=== PATIENT | female | born 1975 | race Caucasian/White ===

== ENCOUNTER 2021-12-02 03:21 | Emergency (ER) | payer BC, SELFPAY ==
[2021-12-02] VITALS (21 sets, daily range): BP systolic 113–129; BP diastolic 49–68; PULSE 72; RESP 16; TEMP 36.8; O2SAT 93–100
--- NOTE | ~2021-12-02 | CT_ITS ---
EXAMINATION: CT abdomen pelvis w con DATE: 12/02/2021 04:34 INDICATION: Upper abdominal pain. Nausea. TECHNIQUE: Computed tomography (CT) of the abdomen and pelvis was performed with 100 mL Omnipaque 350 intravenous contrast. Automated exposure control and iterative reconstruction technique were employe d. The dose-length product was 440.38 mGy-cm. COMPARISON: CT abdomen and pelvis 05/01/2019 FINDINGS: The visualized portions of the lung bases are clear without pneumonia or pleural effusion. The heart size is normal. No pericardial effusion. There is a 6 mm cyst in the liver. The gallbladder , spleen, pancreas, adrenal glands, and kidneys are normal. There are appendicoliths in the appendix, which is dilated to 13 mm, increased from 5 mm on 05/01/2019. There is gas in the lumen of the append ix. There is a small sliding hiatal hernia. There are no pathologically enlarged lymph nodes. There i s physiologic fluid in the pelvis. The bones are unremarkable. IMPRESSION: 1. Acute appendicitis. Reviewed, dictated and finalized at location A. IMPRESSION: 1. Acute appendicitis.
--- NOTE | 2021-12-02 03:39 | ED.ABDPAIN ---
HPI - Abdominal Pain General Chief Complaint: Abdominal Pain Stated Complaint: Abdominal pain, nausea Time Seen by Provider: 12/02/21 03:24 Source: patient Mode of arrival: EMS Limitations: no limitations History of Present Illness HPI narrative: 46-year-old female presents emergency room by prashanto secondary to abdominal pain. She went to bed in her normal state of health and woke up a few hours later with some burning in the epigastric region. She states she has a history of some reflux and so she propped herself up in bed did not get significant relief then went and ate some peanut butter and crackers. She had been fasting for about 26 hours prior to this. However the pain did not actually improved and continued to have some increasing pain all across the epigastric region subsequently got concerned and came to emergency room for evaluation. Denies any chills or fevers. No nausea vomiting. No known history of any gallbladder issues. Related Data Allergies Allergy/AdvReac Type Severity Reaction Status Date / Time egg Allergy Severe CAN'T Verified 05/01/19 19:32 BREATHE Sulfa (Sulfonamide Allergy Severe Anaphylactic Verified 05/01/19 19:32 Antibiotics) Shock FLU VACCINE Allergy Severe Uncoded 10/08/07 07:53 Review of Systems Review of Systems: CONSTITUTIONAL: Denies fever, chills, or sweats. EYES: Denies visual changes, redness, or discharge. ENT: Denies rhinorrhea, congestion, sore throat, or otalgia. CARDIOVASCULAR: Denies chest pain, palpitations, or edema. RESPIRATORY: Denies cough or dyspnea. GASTROINTESTINAL: Epigastric abdominal pain with no associated vomiting or diarrhea GENITOURINARY: Denies dysuria or hematuria. SKIN: Denies rash or itching. MUSCULOSKELETAL: Denies back pain, joint pain, or myalgia. NEUROLOGIC: Denies headache, numbness, or weakness. PSYCHIATRIC: Denies anxiety or depression. Exam Narrative: APPEARANCE: Well appearing, no pain or distress, well-nourished. Head normocephalic and atraumatic. EYES: PERRLA/EOMI, conjunctivae very clear. NOSE: Normal with no drainage EARS:TMS clear Manoj Wade, with good light reflex. THROAT: Pharynx clear, no exudate. NECK: Supple. No adenopathy, no masses. RESPIRATORY: Airway patent, respirations nonlabored. Clear to auscultation bilaterally, no rales, rhonchi, wheezing. CARDIOVASCULAR: Regular rate and rhythm without murmurs, rubs, or gallops. ABDOMINAL: Soft with tenderness to palpation epigastric, right upper quadrant region and mild pain to the right mid abdominal region. No rebound rigidity guarding. Normal bowel sounds. Musculoskeletal: Moves all extremities. Strength/ROM intact, No edema, No calf tenderness. NEURO: Alert. Cranial nerves II through XII intact. Normal gait. Good coordination. Nonfocal examination. SKIN:: Warm, dry. Normal Color PSYCHIATRIC: Normal affect/mood, normal interaction Course Vital Signs Vital signs: Vital Signs Temperature 98.3 F 12/02/21 03:22 Pulse Rate 72 12/02/21 03:22 Respiratory Rate 16 12/02/21 03:22 Blood Pressure 129/68 12/02/21 03:22 Pulse Oximetry 100 12/02/21 03:22 Temperature 98.3 F 12/02/21 03:22 Pulse Rate 72 12/02/21 03:22 Respiratory Rate 16 12/02/21 03:22 Blood Pressure 123/66 12/02/21 03:31 Pulse Oximetry 100 12/02/21 04:00 MDM - Abdominal Pain MDM Narrative Medical decision making narrative: Laboratory work-up was performed showing the patient has a white count of 11.0 with 85.4% neutrophils. Chemistry panel shows a slight decrease in potassium at 3.3 urinalysis shows 2+ ketones with the patient's been fasting no signs of an infection. CT scan comes back with findings consistent with acute appendicitis. This was reviewed with the patient. Patient preferred to go to [facility]. I called [facility] and spoke to Dr. Noman Juarez who accepted the patient in transfer. Patient was given Zosyn 3.375 IV here in the emergency room. She will be kept NPO. IV was establish
[2021-12-02] MEDS: BELLADONNA ALK/PHENOB ELIX 10 ML, MAG HYDROX/ALUMINUM HYD/SIMETH 30 ML, LIDOCAINE HCL 2... PO (03:47)
[2021-12-02] MEDS: FAMOTIDINE 20 MG/2 ML VIAL 40 MG IV PUSH (03:47)
[2021-12-02 03:56] LABS: Basophils Percent Auto 0.2 % (0.2-1.2); Eosinophils Absolute Auto 0.1 K/mm3 (0-0.3); Eosinophils Percent Auto 0.7 % (0-4.4); Hematocrit 41.5 % (37.0-47.0); Hemoglobin 14.3 g/dL (12.0-15.0); Immature Granulocyte Absolute 0.03 K/mm3 (0.00-0.031); Immature Granulocyte Percent A 0.3 % (0-0.5); Lymphocytes Absolute Auto 1.07 K/mm3 (0.9-3.2); Lymphocytes Percent Auto 9.7 % (18.3-44.2); Mean Corpuscular HGB Conc 34.5 g/dl (32-36); Mean Corpuscular Hemoglobin 31.4 pg (26-34); Mean Corpuscular Volume 91.2 fl (80-100); Mean Platelet Volume 10.4 fl (7.4-10.4); Monocytes Absolute Auto 0.4 K/mm3 (0.1-0.6); Monocytes Percent Auto 3.7 % (2.6-8.5); Neutrophils Absolute Auto 9.4 K/mm3 (1.3-6.7); Neutrophils Percent Auto 85.4 % (45.5-73.1); Platelet Count Result 234 k/mm3 (150-375); Red Blood Count 4.55 M/mm3 (4.2-5.4)
[2021-12-02 03:58] LABS: Appearance Urine Clear (Clear); Bilirubin Urine Negative (Negative); Color Urine Yellow (Yellow); Glucose Urine UA Negative (Negative); Ketones Urine 2+ mg/dL (Negative); Leukocyte Esterase Ur Negative LEU/UL (Negative); Nitrate Urine Negative (Negative); Protein Urine Negative (Negative); Specific Grav Ur 1.025 (1.001-1.035); Urobilinogen Urine 0.2 mg/dL (<2.0); pH Urine 8.5 (5.0-9.0)
[2021-12-02 04:02] LABS: Add Urine Microscopic? YES; Blood Urine Trace-Intact (Negative)
[2021-12-02 04:06] LABS: Amorphous Sediment Urine Few; Bacteria Urine Trace /hpf; Mucus Urine Rare /lpf; RBC Urine 0-2 /hpf (0-2); Squamous Epithelial Cell Urine Few /hpf (Few); WBC Urine 0-3 /hpf
[2021-12-02 04:07] LABS: Alanine Aminotransferase 25 U/L (4-35); Albumin Level 3.9 g/dL (3.5-5.1); Alkaline Phosphatase 68 U/L (38-126); Anion Gap 6 mmol/L (8-16); Aspartate Amino Transferase 30 U/L (14-36); Bilirubin,Total 0.3 mg/dL (0.2-1.3); Blood Urea Nitrogen 12 mg/dL (7-17); Calcium 8.9 mg/dL (8.4-10.2); Carbon Dioxide 23 mmol/L (22-30); Chloride 107 mmol/L (98-107); Estimated Glomerular Filt Rate > 60; Glucose 116 mg/dL (65-110); Lipase 67 U/L (23-300); Potassium 3.3 mmol/L (3.4-5.0); Sodium 136 mmol/L (137-145)
[2021-12-02] MEDS: SODIUM CHLORIDE 0.9% IV 1,000 ML 150 ML IV CONT (05:10)
[2021-12-02] MEDS: MORPHINE SULFATE (*CRX) 2 MG/ML INJ IV PUSH (05:57)
[2021-12-02 06:03] LABS: SARS-CoV-2 RNA PCR Negative
--- NOTE | 2021-12-02 06:22 | PC.NURSE ---
0614: Jesse from [facility] called with bed assignment for patient ([id number]). Informed RN.
--- NOTE | 2021-12-02 07:41 | PC.NURSE ---
ems updated eta. new eta of 0826
[2021-12-02] MEDS: MORPHINE SULFATE (*CRX) 4 MG/ML INJ (08:59)
[2021-12-02] MEDS: ONDANSETRON INJ 4 MG/2 ML VIAL (09:00)
== END 2021-12-02 09:11 | disposition short-term general hospital (02) ==
PROVIDERS: Emergency Medicine; Emergency Provider Emergency Medicine
DX: K35.80 Unspecified acute appendicitis (principal); Z20.822 Contact with and (suspected) exposure to COVID-19
CPT/HCPCS: 36415; 74177; 80053; 81001; 81025; 83690; 85025; 96361; 96365; 96375; 96376; 99285; A9270; C9803; J2270; J2405; J2543; J7030; Q9967; U0003; U0005

== ENCOUNTER 2025-07-01 08:25 | Emergency (ER) | payer OTHER, SELFPAY ==
[2025-07-01 08:31] VITALS: BP 117/62; PULSE 81; RESP 16; TEMP 36.8; O2SAT 99
--- NOTE | 2025-07-01 09:47 | ED_ITS ---
HPI - Fall General Chief Complaint: Fall Stated Complaint: laceration Time Seen by Provider: 07/01/25 08:50 History of Present Illness HPI Narrative: Patient is a 49-year-old female who presents ER with laceration to the left knee. Trip and fall while walking her dog. No tear in her pants but she does have a 6 cm v-shaped laceration that is a flap. Tetanus up-to-date in the last 2 years. No numbness or tingling. Related Data Allergies Allergy/AdvReac Type Severity Reaction Status Date / Time egg Allergy Severe CAN'T Verified 07/01/25 08:34 BREATHE Sulfa (Sulfonamide Allergy Severe Anaphylactic Verified 07/01/25 08:34 Antibiotics) Shock FLU VACCINE Allergy Severe Anaphylaxis Uncoded 07/01/25 08:34 Review of Systems Constitutional: Constitutional: Reports no additional constitutional complaints Integumentary/Breasts: Skin/Breast: Reports system reviewed and no additional complaints, except as docu Exam Narrative: GENERAL: Well-appearing, well-nourished, and in no acute distress. HEAD: Normocephalic, atraumatic. EXTREMITIES: Normal range of motion. No edema. Left patellar tendon intact. SKIN: Warm, dry . 6 cm v-shaped laceration inferior to left knee. No foreign body in a bloodless field. NEURO: Alert and oriented x3. PSYCH: Normal mood and affect. Course Vital Signs Vital signs: Vital Signs Temperature 98.2 F 07/01/25 08:31 Pulse Rate 81 07/01/25 08:31 Respiratory Rate 16 07/01/25 08:31 Blood Pressure 117/62 07/01/25 08:31 Pulse Oximetry 99 07/01/25 08:31 Temperature 98.2 F 07/01/25 08:31 Pulse Rate 81 07/01/25 08:31 Respiratory Rate 16 07/01/25 08:31 Blood Pressure 117/62 07/01/25 08:31 Pulse Oximetry 99 07/01/25 08:31 Procedures Laceration Laceration 1: Date: 07/01/25 Time: 09:50 Site: other ( Left knee) Size (cm): 6 Description: flap Depth: simple, single layer Local Anesthetic: lidocaine 1% and with epi Amount of anesthesia used (mL): 5 Pre-repair: wound explored and irrigated ====== Skin Level ====== Skin layer closed with: nylon Size (cm): 3-0 Number of sutures: 5 Technique: simple, interrupted (3) and horizontal mattress (2) ====== Subcutaneous Layer ====== ====== Muscle Layer ====== ====== Tendon Layer ====== MDM - Fall Differential Diagnosis Differential diagnosis: Likely other ( laceration, skin tear, foreign body fracture of lower extremity) Discharge Plan Discharge Clinical Impression: Laceration Patient Disposition: Home Condition: Stable Instructions: Laceration (ED) Additional Instructions: you will need your sutures removed in 14 days. You may remove them yourself or return to the ER. You may also go to your primary care doctor. Return the ER earlier if your skin wound is red and hot, it is draining pus, or you have additional concerns. Patient Language: Uzbek Follow-up/Referrals: PHYSICIAN NOT ON STAFF,NONSTAFF [Primary Care Provider] - 2 Weeks
--- OUTSIDE RECORDS SUMMARY | 2025-07-01 10:49 | XMS_ITS ---
Author Organization [facility] Address [address] [place] [address] Care Team Providers Care Auxiliary Equipment Tender Name Role Phone Miscellaneous, Not In File Unavailable Unava ilable Alcira Canas MD Primary Care Provider Transplant Episode Kidney Potential Donor [facility] ([place], [place]) - [facility] Referred on 04/02/2024 Marked as Deferred on 04/02/2024 Reason: Pending Return of Packet Kidney CoordinatorAco Anant Rivera MD Fax: N/A Email: N/A Care Team Name Role Phone Fax Email Aco Anant Rivera MD Kidney Coordinator [phone] N/A N/A Events Pre-Donation Referred: 04/02/2024
--- OUTSIDE RECORDS SUMMARY | 2025-07-01 10:49 | XMS_ITS | Encounter Summary ---
Author Organization [facility] Address 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
--- OUTSIDE RECORDS SUMMARY | 2025-07-01 10:49 | XMS_ITS | Encounter Summary ---
Author Organization [facility] Address [address] [place] [address] Care Team Providers Care Post Doctoral Researcher Name Role Phone Kesha Oswald MD Primary Care Provider [phone] Encounter Details Date Type Department Care Team (Late st Contact Info) Description 02/18/2006 Outpatient Historical [facility] Internal Medicine Medical [place] [facility] [address] [address] Barby Cordon MD [facility] [address] [place] [address] Social History Tobacco Use Types Packs/Day Years Used Date Smoking Tobacco: Never Assessed Comments Unknown Sex and Gender Information Value Date Recorded Sex Assigned at Not on file Legal Sex Female 5:38 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 COORDINATOR Gender Identity Not on file Sexual Orientation Not on file documented as of this encounter Last Filed Vital Signs Vital Sign Reading Time Taken Comments Blood Pressure 100/70 02/18/2006 11:00 AM CDT Pulse 64 02/18/2006 11:00 AM CDT Temperature - - Respiratory Rate 18 02/18/2006 11:00 AM CDT Oxygen Saturation - - Inhaled Oxygen Concentration - - Weight 57.2 kg (126 lb) 02/18/2006 11:00 AM CDT Height 152.4 cm (5') 02/18/2006 11:00 AM CDT Body Mass Index 24.61 02/18/2006 11:00 AM CDT documented in this encounter Plan of Treatment Not on file documented as of this encounter Visit Diagnoses Not on filedocumented in this encounter Care Teams Post Doctoral Researcher Relationship Specialty Start Date End Date Kesha Oswald MD PCP - General 10/18/09 documented as of this encounter
--- OUTSIDE RECORDS SUMMARY | 2025-07-01 10:49 | XMS_ITS | Clinical Summary ---
Author Organization [facility] Address [address] [place] [address] Phone Care Team Providers Care Hair Mixer Name Role Phone Kesha Oswald MD Primary Care Provider [phone] Allergies Active Allergy Reactions Criticality Noted Date Comments Egg 05/01/2005 Egg Derived Anaphylaxis High 06/14/2011 Sulfa (Sulfonamide Antibiotics) Anaphylaxis High Sulfites Hives High 05/01/2005 Medications LACTOBACILLUS/F OS/PECTIN (PROBIOTIC COMPLEX PO) Take by mouth. Act clemente Calcium-Choleca lciferol, D3, (CALCIUM 600 + D) 600-125 mg-unit Oral Tab Take by mouth. Activ e BRAN/LECITHIN/O DELIA-3/MULTIVIT (MULTIVIT-OMEGA [id number] ) Oral Tab Take by mouth. Acti ve pyridoxine (VITAMIN B-6) 100 mg Oral Tab Take 50 mg by mouth daily. Active folic acid (FOLVITE) 1 mg Oral tablet Take 1 mg by mouth daily. Active Cholecalciferol , Vitamin D3, (VITAMIN D) 5,000 unit Oral Tab Take 5,000 Int'l Units by mouth. Active fluticasone (FLONASE) 50 mcg/spray [place], Suspension 04/24/20 15 Active aspirin-caffein e-butalbital (FIORINAL) 325-40-50 mg capsuleIndicati ons:Migraine with aura and without status migrainosus, not intractable Take 1 Capsule by mouth every 4 hours as needed for Migraine. 40 Capsule 1 04/20/20 20 Active albuterol HFA 90 mcg inhaler Take 2 Puffs by inhalation every 6 hours as needed for Shortness of Breath. 8.5 Gram 1 04/20/20 20 Active liothyronine (CYTOMEL) 25 mcg Tablet Take 1 Tablet (25 mcg) by mouth daily. 30 Tablet 5 07/27/2023 5:07 PM TEST BORING CREW CHIEF 04/11/20 23 Active acetaminophen-c affeine-butalbi angela (FIORICET) 300-40-50 mg capsule Take 1-2 Capsules by mouth every 4 hours as needed for migraine. 45 Capsule 1 06/11/2023 11:24 AM CDT 05/28/20 23 Active liothyronine (CYTOMEL) 25 mcg Tablet Take 1 Tablet (25 mcg) by mouth daily. 30 Tablet 5 07/22/2024 3:16 PM TEST BORING CREW CHIEF 10/16/19 24 Active tirzepatide, weight loss, (Zepbound) 2.5 mg/0.5 mL Pen Injector INJECT 2.5 MG SUBCUTANEOUSLY ONCE WEEKLY X 4 WEEKS; 2 mL 10/16/19 24 Active semaglutide, weight loss, (Wegovy) 0.25 mg/0.5 mL Pen Injector INJECT 0.25 MG UNDER THE SKIN ONCE WEEKLY 2 mL 1 10/18/19 24 Active Blood-Glucose Sensor (Dexcom G7 Sensor) Device Use for continous blood glucose monitoring, replace every 10 days. 3 Each 10/22/19 24 Active Blood-Glucose Sensor (Dexcom G7 Sensor) Device USE DIRECTED 1 Each 11/12/19 24 Active azithromycin (Zithromax Z-Andrea) 250 mg tablet Take 2 tablets by mouth on day 1, then take 1 tablet by mouth daily for 4 days 6 Tablet 02/25/2024 4:51 PM CDT 02/25/20 24 Active liothyronine (CYTOMEL) 25 mcg Tablet Take 1 Tablet (25 mcg) by mouth daily. 30 Tablet 5 03/09/2025 4:13 PM CDT 07/22/20 24 Active nystatin (MYCOSTATIN) 500,000 unit Tablet Take 1 Tablet by mouth 2 times daily. 60 Tablet 07/22/2024 3:16 PM TEST BORING CREW CHIEF 07/22/20 24 Active liothyronine (CYTOMEL) 25 mcg Tablet Take 1 Tablet (25 mcg) by mouth daily. 30 Tablet 2 11/24/19 25 Active triamcinolone acetonide (NASACORT AQ) 55 mcg nasal spray Administer 2 sprays into each nostril daily 16.9 mL 3 02/05/2025 5:29 PM CDT 02/05/20 25 Active hydrocortisone (HYTONE) 2.5 % Cream Apply topically 2 (two) times a day on the upper lip rash for 1-2 weeks until improved. 30 Gram 04/14/2025 5:53 PM CDT 04/14/20 25 Active Active Problems Problem Noted Date Diagnosed Date Hx of anorexia nervosa 06/23/2021 Cholecystitis 05/07/2019 Elevated cortisol level 02/11/2018 Osteopenia of thigh 01/27/2018 Family history of diabetes mellitus 08/23/2017 Tonsil stone 03/25/2015 Egg allergy 01/11/2012 Supervision of other normal 06/14/2011 Personal history of tobacco use 12/25/2010 corpuse luteum cyst, pain control 12/12/2010 History of tobacco use 10/18/2009 Migraine with aura 12/30/2006 Palpitations 04/15/2006 Other convulsions 02/18/2006 Assessment & Plan (01/30/2021 4:18 PM CDT): Antiepileptic on medication list. Asymptomatic. Contact dermatitis and other eczema, due to unspecified cause 10/17/2005 Anxiety state, unspecified 05/01/2005 Resolved Problems Problem Noted Date Diagnosed Date Resolved Date Routine general medical exam ination at a health care facility 03/28/2007 12/25/2010 Need for prophylactic vaccin ation with combined psbfyvzbne-zwlrgrb-qdvfkibpn (DTP) vaccine 01/06/2007 12/25/2010 Abdominal pain, right upper quadrant 05/01/2005 12/25/2010 Screening for lipoid disorders 05/01/2005 12/25/2010 Encounters Date Type Department Care Team Description 06/22/2025 External Device Data [facility] ABSTRACTION Provider, Abstract 06/16/2025 External Device Data [facility] ABSTRACTION Provider, Abstract 06/15/2025 External Device Data [facility] ABSTRACTION Provider, Abstract 06/09/2025 External Device Data [facility] ABSTRACTION Provider, Abstract 06/08/2025 External Device Data [facility] ABSTRACTION Provider, Abstract 05/05/2025 External Device Data [facility] ABSTRACTION Provider, Abstract 05/04/2025 External Device Data [facility] ABSTRACTION Provider, Abstract from Last 3 Months Immunizations Immunization Administration Dates Next Due (ADACEL/BOOSTRIX)(10 YR UP) TDAP VACCINE, 0.5ML, IM 01/06/2007 Family History Medical History Relation Name Comments Cancer Father 72 bladder/ skin Diabetes Father 72 Cancer Maternal Grandmother cervica l Cancer Mother 69 uterine Diabetes Mother 69 Heart Disease Mother 69 High Cholesterol Mother 69 Hypertension Mother 69 Kidney Disease Mother 69 Other Mother 69 schizo Hypertension Paternal Grandfather Lung Cancer Paternal Grandmother Other Sister epileptic/bipol ar Breast Cancer Neg Hx Colon Cancer Neg Hx Ovarian Cancer Neg Hx Relation Name Status Comments Father 72 Alive Maternal Grandmother Mother 69 Alive Paternal Grandfather Paternal Grandmother Sister Alive Social History Tobacco Use Types Packs/Day Years Used Date Smoking Tobacco: Former Cigarettes 1 15 1 - 05/29/2003 Smokeless Tobacco: Former Tobacco Cessation:Counseling Given: Not Answered Alcohol Use Standard Drinks/Week Comments Yes 2 (1 standard drink = 0.6 oz pur e alcohol) Comments No Sex and Gender Information Value Date Recorded Sex Assigned at Not on file Legal Sex Female 5:38 AM TEST BORING CREW CHIEF Gender Identity Not on file Sexual Orientation Not on file Occupation Industry Job Start Date Job End Date Not on file Not on file Not on file Not on file Last Filed Vital Signs Vital Sign Reading Time Taken Comments Blood Pressure 114/70 01/25/2025 2:39 PM CDT Pulse 81 01/25/2025 2:39 PM CDT Temperature 36.7 C (98 F) 04/16/2018 10:23 AM CDT Respiratory Rate 16 03/03/2015 2:02 PM CDT Oxygen Saturation 98% 01/25/2025 2:39 PM CDT ra Inhaled Oxygen Concentration - - Weight 73.9 kg (163 lb) 01/25/2025 2:39 PM CDT Height 149.9 cm (4' 11) 01/25/2025 2:39 PM CDT Body Mass Index 32.92 01/25/2025 2:39 PM CDT Plan of Treatment Health Maintenance Due Date Last Done Comments HEPATITIS B VACCINES (1 of 3 - 19+ 3-dose series) 1993 HPV/Cotest (21-29) 1995 HPV/Cotest (30-65) 2004 DTAP/TDAP/TD VACCINES (2 - T d or Tdap) 01/06/2017 01/06/2007 COLORECTAL SCREENING 2019 Colorectal Cancer Screening 2019 FIT-DNA Q 3 years 2019 FIT/FOBT Q 1 year 2019 Flex Sig/CT Colonography Q 5 years 2019 CERVICAL CANCER SCREENING 09/10/2020 PAP SMEAR 09/10/2020 09/10/2017, 09/20, 12/01/2010, Additional history exists Pre-Diabetes and Diabetes Screening 09/26/2020 09/26/2017, 08/23/2017 BREAST CANCER SCREENING 11/15/2023 11/15/19, 11/14/2022, 08/29/2017, Additional history exists ZOSTER VACCINE (1 of 2) 2024 INFLUENZA VACCINE (#1) 2025 Procedures Procedure Name Priority Date/Time Associated Diagnosis Comments HEMOGLOBIN A1C Routine 09/26/2017 12:27 PM TEST BORING CREW CHIEF MAMMO DIAGNOSTIC BILATERAL W OR WO CAD Routine 04/04/2015 from Last 3 Months or Most Recently Relevant to Health Maintenance Results * HEMOGLOBIN A1C (09/26/2017 12:27 PM TEST BORING CREW CHIEF) HEMOGLOBIN A1C 5.1 4.8 - 5.6 % [facility] Comment: Pre-diabetes: 5.7 - 6.4 Diabetes: >6.4 Glycemic control for adults with diabetes: <7.0 09/26/2017 12:2 7 PM TEST BORING CREW CHIEF 09/26/2017 Narrative [facility] - 2017 7:10 AM TEST BORING CREW CHIEF Performed at: 01 - [facility] [id number] Secure Software Assessor: Darren Freeman PhD, Phone: [phone] us Kesha Oswald MD CHEMISTRY ORDERABLES Final R esult [facility] * MAMMO DIGITAL DIAG BILAT (04/04/2015) Anatomical Region Laterality Modality Breast Bilateral Other us Kesha Oswald MD MAMMO ORDERABLES Final Resul t from Last 3 Months or Most Recently Relevant to Health Maintenance Insurance SUREST [id number] RX [employer] Member Subscriber Plan / Payer (Ef fective 2023-Present) Name:Taryn La Relation to Subscriber:Self Name:Taryn La Subscriber ID:Not on file Payer ID:Not on file Group ID:[id number] Type:RX Commercial Address: [address] [employer] (INTERNAL) [facility] [employer] RX [employer] RX Member Subscriber Plan / Payer (Ef fective 2024-Present) Name:Taryn La Relation to Subscriber:Spouse Subscriber ID:Not on file Payer ID:Not on file Type:RX Commercial Address: [address] Advance Directives For more information, please contact: [phone] * Full Code (Latest Code Status on File) Date Activated Date Inactivated Comments 06/14/2011 10:02 PM 06/15/2011 2:17 AM * Full Code Date Activated Date Inactivated Comments 12/12/2010 11:19 AM 12/13/2010 8:43 PM * Full Code Date Activated Date Inactivated Comments 12/12/2010 11:03 AM 12/12/2010 11:19 AM Care Teams Hair Mixer Relationship Specialty Start Date End Date Kesha Oswald MD PCP - General 10/18/09
--- OUTSIDE RECORDS SUMMARY | 2025-07-01 10:49 | XMS_ITS | Encounter Summary ---
Author Organization [facility] Address [address] [place] [address] Care Team Providers Care Clamp Jig Assembler Name Role Phone Kesha Oswald MD Primary Care Provider [phone] Encounter Details Date Type Department Care Team (Late st Contact Info) Description 04/24/2006 Outpatient Historical [facility] [address] [place] [address] [place] [address] [address] [place] [address] Social History Tobacco Use Types Packs/Day Years Used Date Smoking Tobacco: Never Assessed Comments Unknown Sex and Gender Information Value Date Recorded Sex Assigned at Not on file Legal Sex Female 5:38 AM ENGLISH AND READING INSTRUCTOR Gender Identity Not on file Sexual Orientation Not on file documented as of this encounter Plan of Treatment Not on file documented as of this encounter Visit Diagnoses Not on filedocumented in this encounter Care Teams Clamp Jig Assembler Relationship Specialty Start Date End Date Kesha Oswald MD PCP - General 10/18/09 documented as of this encounter
--- OUTSIDE RECORDS SUMMARY | 2025-07-01 10:49 | XMS_ITS | Encounter Summary ---
Author Organization [facility] Address 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 Gender Identity Not on file Sexual Orientation Not on file documented as of this encounter Plan of Treatment Not on file documented as of this encounter Procedures Procedure Name Priority Date/Time Associated Diagnosis Comments TSH REFLEXIVE Routine 05/07/2005 8:05 AM CDT CBC WITH DIFFERENTIAL Routine 05/07/2005 8:05 AM CDT CBC WITH DIFFERENTIAL Routine 05/07/2005 8:05 AM CDT LIPASE Routine 05/07/2005 8:05 AM CDT LIPID PANEL Routine 05/07/2005 8:05 AM CDT COMPREHENSIVE METABOLIC PANEL Routine 05/07/2005 8:05 AM CDT documented in this encounter Results * CBC WITH DIFFERENTIAL (05/07/2005 8:05 AM CDT) NEUTROPHILS 58 45 - 70 % INTERFAC E SYSTEM LYMPHOCYTES 29 16 - 45 % INTERFAC E SYSTEM MONOCYTES 6 3 - 13 % INTERFACE SYSTEM EOSINOPHILS 7 0 - 7 % INTERFAC E SYSTEM BASOPHILS 0 0 - 2 % INTERFACE SYSTEM NEUTROPHIL ABSOLUTE 2.89 1.90 - 7.00 K/uL INTERFACE SYSTEM LYMPHOCYTE ABSOLUTE 1.45 0.70 - 4.50 K/uL INTERFACE SYSTEM MONOCYTE ABSOLUTE 0.28 0.10 - 1.30 K/uL INTERFACE SYSTEM EOSINOPHIL ABSOLUTE 0.32 0.00 - 0.70 K/uL INTERFACE SYSTEM BASOPHILS ABSOLUTE 0.02 0.00 - 0.20 K/uL INTERFACE SYSTEM 05/07/2005 8:05 AM CDT Barby Cordon MD HEMATOLOGY ORDERABLES Final Result INTERFACE SYSTEM Refer to clinic/hospital department * (ABNORMAL) CBC WITH DIFFERENTIAL (05/07/2005 8:05 AM CDT) WBC 5.0 4.0 - 9.8 K/uL INTERFACE SYSTEM RBC 5.00(H) 3.90 - 4.90 M/uL INTERFACE SYSTEM HEMOGLOBIN 16.3(H) 11.8 - 14.8 g/dL INTERFACE SYSTEM HEMATOCRIT 47.1(H) 35.5 - 44.0 % INTERFACE SYSTEM MCV 94.2 82.0 - 99.0 fL INTERFACE SYSTEM MCH 32.6 27.2 - 32.6 pg INTERFACE SYSTEM MCHC 34.6 31.5 - 35.5 % INTERFACE SYSTEM RDW 12.8 11.5 - 14.5 % INTERFACE SYSTEM RDW-STDEV 44.5 37.1 - 48.7 fL INTERFACE SYSTEM PLATELETS 216 140 - 350 K/uL INTERFACE SYSTEM MPV 12.6(H) 9.3 - 12.4 fL INTERFACE SYSTEM 05/07/2005 8:05 AM CDT Barby Cordon MD HEMATOLOGY ORDERABLES Final Result INTERFACE SYSTEM Refer to clinic/hospital department * LIPID PANEL (05/07/2005 8:05 AM CDT) CHOLESTEROL 125 100 - 199 mg/dL INTERFACE SYSTEM TRIGLYCERIDE 63 10 - 149 mg/dL INTERFACE SYSTEM HDL 55 40 - 59 mg/dL INTERFACE SYSTEM LDL CALCULATED 57 <=99 mg/dL INTERFACE SYSTEM CHOL/HDL RATIO 2.3 2.0 - 5.0 INTER FACE SYSTEM Comment:See interpretive eliana a section for risk classifications. LIPID PANEL COMMENT See below INTERFACE SYSTEM Comment: Adult ATP III Classifications: Cholesterol (mg/dL) Triglyceride (mg/dL) Desirable <200 Normal <150 Borderline 200 - 239 Borderline High 150 - 199 High >=240 High 200 - 499 Very High >=500 HDL Cholesterol (mg/dL) LDL (mg/dL) Low (increased risk) <40 Optimal <100 High (reduced risk) >=60 Near or above optimal 100 - 129 Borderline 130 - 159 High 160 - 189 Very High >=190 LDL calculation is not accurate if Triglycerides are greater than 400 mg /dL Pediatric NCEP Classifications: Cholesterol(<20 years),(mg/dL) Triglyceride Desirable <170 Pediatric classification Borderline 170 - 199 not defined. High >=200 HDL (<5 years) LDL (mg/dL) No Reference Range Established Desirable <110 Borderline 110 - 129 High >=130 05/07/2005 8:05 AM CDT Barby Cordon MD CHEMISTRY ORDERABLES Final R esult INTERFACE SYSTEM Refer to clinic/hospital department * LIPASE (05/07/2005 8:05 AM CDT) LIPASE 25 13 - 60 U/L INTERFAC E SYSTEM 05/07/2005 8:05 AM CDT Barby Cordon MD CHEMISTRY ORDERABLES Final R esult Performing Organization Address City/[facility]/ZIP Co de Phone Number INTERFACE SYSTEM Refer to clinic/hospital department * TSH REFLEXIVE (05/07/2005 8:05 AM CDT) TSH 1.35 0.27 - 4.20 uU/mL INTERFACE SYSTEM 05/07/2005 8:05 AM CDT us Barby Cordon MD CHEMISTRY ORDERABLES Final R esult Performing Organization Address City/[facility] Co de Phone Number INTERFACE SYSTEM Refer to clinic/hospital department * COMPREHENSIVE METABOLIC PANEL (05/07/2005 8:05 AM CDT) GLUCOSE 92 65 - 109 mg/dL INTERFACE SYSTEM CREATININE 0.9 0.4 - 1.2 mg/dL INTERFACE SYSTEM CALCIUM 9.6 8.6 - 10.2 mg/dL INTERFACE SYSTEM AST 27 12 - 32 U/L INTERFACE SYSTEM ALKALINE PHOSPHATASE 66 35 - 104 U/L INTERFACE SYSTEM BUN 12 6 - 20 mg/dL INTERFACE SYSTEM BILIRUBIN TOTAL 0.4 0.2 - 1.0 mg/dL INTERFACE SYSTEM ALBUMIN 4.4 3.4 - 4.8 g/dL INTERFACE SYSTEM TOTAL PROTEIN 7.7 6.3 - 8.6 g/dL INTERFACE SYSTEM ALT 31 0 - 31 U/L INTERFACE SYSTEM SODIUM 141 135 - 145 mmol/L INTERFACE SYSTEM POTASSIUM 4.2 3.5 - 4.9 mmol/L INTERFACE SYSTEM CHLORIDE 107 96 - 108 mmol/L INTERFACE SYSTEM CO2 29 22 - 30 mmol/L INTERFACE SYSTEM 05/07/2005 8:05 AM CDT us Barby Cordon MD CHEMISTRY ORDERABLES Final R esult Performing Organization Address City/[facility] Co de Phone Number INTERFACE SYSTEM Refer to clinic/hospital department documented in this encounter Visit Diagnoses Diagnosis Abdominal pain, right upper quadrant- Primary documented in this encounter Care Teams Analytics Consultant Relationship Specialty Start Date End Date Kesha Oswald MD PCP - General 10/18/09 documented as of this encounter
--- OUTSIDE RECORDS SUMMARY | 2025-07-01 10:49 | XMS_ITS | Encounter Summary ---
Author Organization [facility] Address [address] [place] [address] Care Team Providers Care Material Control Analyst Name Role Phone Kesha Oswald MD Primary Care Provider [phone] Encounter Details Date Type Department Care Team (Late st Contact Info) Description 03/28/2007 Outpatient Historical [facility] Internal Medicine Medical [place] [facility] [address] [address] Barby Cordon MD [facility]5 [facility] [address] [place] [address] Social History Tobacco Use Types Packs/Day Years Used Date Smoking Tobacco: Never Assessed Comments Unknown Sex and Gender Information Value Date Recorded Sex Assigned at Not on file 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 Gender Identity Not on file Sexual Orientation Not on file documented as of this encounter Last Filed Vital Signs Vital Sign Reading Time Taken Comments Blood Pressure 110/70 03/28/2007 3:15 PM CDT Pulse 68 03/28/2007 3:15 PM CDT Temperature 36.7 C (98.1 F) 03/28/2007 3:15 PM CDT Respiratory Rate 16 03/28/2007 3:15 PM CDT Oxygen Saturation - - Inhaled Oxygen Concentration - - Weight 55.8 kg (123 lb) 03/28/2007 3:15 PM CDT Height - - Body Mass Index 24.02 02/18/2006 11:00 AM CDT documented in this encounter Plan of Treatment Not on file documented as of this encounter Visit Diagnoses Not on filedocumented in this encounter Care Teams Material Control Analyst Relationship Specialty Start Date End Date Kesha Oswald MD PCP - General 10/18/09 documented as of this encounter
--- OUTSIDE RECORDS SUMMARY | 2025-07-01 10:49 | XMS_ITS | Encounter Summary ---
Author Organization [facility] Address [address] [place] [address] Care Team Providers Care Certified Technician Specialist Name Role Phone Kesha Oswald MD Primary Care Provider [phone] Encounter Details Date Type Department Care Team (Late st Contact Info) Description 04/15/2006 Outpatient Historical [facility] Internal Medicine Medical [facility] [address] [address] Barby Cordon MD [facility]5 [facility] [address] [place] [address] Social History Tobacco Use Types Packs/Day Years Used Date Smoking Tobacco: Never Assessed Comments Unknown Sex and Gender Information Value Date Recorded Sex Assigned at Not on file 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
--- OUTSIDE RECORDS SUMMARY | 2025-07-01 10:49 | XMS_ITS | Encounter Summary ---
Author Organization [facility] Address [address] [place] [address] Care Team Providers Care Metal Smelter Name Role Phone Kesha Oswald MD Primary Care Provider [phone] Encounter Details Date Type Department Care Team (Late st Contact Info) Description 10/17/2005 Outpatient Historical [facility] Internal Medicine Medical [place] [facility] [address] [address] Barby Cordon MD [facility]5 [facility] [address] [place] [address] Social History Tobacco Use Types Packs/Day Years Used Date Smoking Tobacco: Never Assessed Comments Unknown Sex and Gender Information Value Date Recorded Sex Assigned at Not on file 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 Gender Identity Not on file Sexual Orientation Not on file documented as of this encounter Last Filed Vital Signs Vital Sign Reading Time Taken Comments Blood Pressure 100/50 10/17/2005 11:45 AM SCIENCE TUTOR Pulse 64 10/17/2005 11:45 AM SCIENCE TUTOR Temperature 37.1 C (98.7 F) 10/17/2005 11:45 AM SCIENCE TUTOR Respiratory Rate - - Oxygen Saturation - - Inhaled Oxygen Concentration - - Weight 57.2 kg (126 lb) 10/17/2005 11:45 AM SCIENCE TUTOR Height - - Body Mass Index 24.61 05/01/2005 1:00 PM CDT documented in this encounter Plan of Treatment Not on file documented as of this encounter Visit Diagnoses Not on filedocumented in this encounter Care Teams Metal Smelter Relationship Specialty Start Date End Date Kesha Oswald MD PCP - General 10/18/09 documented as of this encounter
--- OUTSIDE RECORDS SUMMARY | 2025-07-01 10:49 | XMS_ITS | Encounter Summary ---
Author Organization [facility] Address [address] [place] [address] Care Team Providers Care Commercial Roofing Estimator Name Role Phone Kesha Oswald MD Primary Care Provider [phone] Encounter Details Date Type Department Care Team (Late st Contact Info) Description 02/26/2006 Outpatient Historical [facility] [address] [place] [address] Ang Self MD [address] [address] Social History Tobacco Use Types Packs/Day Years Used Date Smoking Tobacco: Never Assessed Comments Unknown Sex and Gender Information Value Date Recorded Sex Assigned at Not on file 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
--- OUTSIDE RECORDS SUMMARY | 2025-07-01 10:49 | XMS_ITS | Encounter Summary ---
Author Organization [facility] Address [address] [place] [address] Care Team Providers Care Coding Auditor Name Role Phone Kesha Oswald MD Primary Care Provider [phone] Encounter Details Date Type Department Care Team (Late st Contact Info) Description 01/06/2007 Outpatient Historical [facility] Internal Medicine Medical [facility] [address] [address] Barby Cordon MD [facility]5 [facility] [address] [place] [address] Social History Tobacco Use Types Packs/Day Years Used Date Smoking Tobacco: Never Assessed Comments Unknown Sex and Gender Information Value Date Recorded Sex Assigned at Not on file 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
--- OUTSIDE RECORDS SUMMARY | 2025-07-01 10:49 | XMS_ITS | Encounter Summary ---
Author Organization [facility] Address [address] [place] [address] Phone Care Team Providers Care Supervisor Tan Room Name Role Phone Kesha Oswald MD Primary Care Provider [phone] Miscellaneous, Not In File Unavailable Unava ilable Moose Patel DO Primary Care Provide r Alcira Canas MD Primary Care Provider Encounter Details Date Type Department Care Team (Late st Contact Info) Description 04/18/2020 Orders Only [facility] Scanning, Provider Social History Tobacco Use Types Packs/Day Years Used Date Smoking Tobacco: Former Cigarettes Q uit: 2002 Smokeless Tobacco: Never Alcohol Use Standard Drinks/Week Comments Yes 0 (1 standard drink = 0.6 oz pur e alcohol) AUDIT-C Answer Date Recorded Frequency of Alcohol Consumption 2-3 times a wee k 12/10/2018 Average Number of Drinks Not on file 019 Frequency of Binge Drinking Not on file 11/18 Comments Unknown Sex and Gender Information Value Date Recorded Sex Assigned at Not on file Legal Sex Female 3:52 PM TRANSIT MIXER OPERATOR Gender Identity Not on file Sexual Orientation Straight 03/29/2021 5: 54 PM CDT documented as of this encounter Plan of Treatment Not on file documented as of this encounter Procedures Procedure Name Priority Date/Time Associated Diagnosis Comments SCAN - LABS 04/18/2020 documented in this encounter Results * SCAN - LABS (04/18/2020) us Provider Scanning Final Result documented in this encounter Visit Diagnoses Not on filedocumented in this encounter Care Teams Supervisor Tan Room Relationship Specialty Start Date End Date Kesha Oswald MD PCP - General 08/29/17 05/11/24 Moose Patel DO [address] [facility] [address] [place] [address] PCP - General Internal Medicine 05/12/24 02/03/25 Alcira Canas MD [address] [facility] [place] [address] PCP - General Internal Medicine 02/04/25 Miscellaneous, Not In File 12/02/21 documented as of this encounter
--- OUTSIDE RECORDS SUMMARY | 2025-07-01 10:49 | XMS_ITS | Encounter Summary ---
Author Organization [facility] Address [address] [place] [address] Care Team Providers Care Envelope Patternmaker Name Role Phone Kesha Oswald MD Primary Care Provider [phone] Encounter Details Date Type Department Care Team (Late st Contact Info) Description 12/30/2006 Orders Only [facility] Internal Medicine Medical [place] [facility] [address] [address] Barby Cordon MD [facility] [address] [place] [address] Social History Tobacco Use Types Packs/Day Years Used Date Smoking Tobacco: Never Assessed Comments Unknown Sex and Gender Information Value Date Recorded Sex Assigned at Not on file 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 MEDICATIONS: Medication list current. CHIEF COMPLAINT Patient complains of migraine headache. HISTORY: HISTORY OF PRESENT ILLNESS: HEADACHE: The symptoms began approximately 4 years ago. The duration is generally for several hours. The frequency is variable. An aura occurs manifested by flashing lights. The headache is located in the left forehead (frontal). The patient has symptoms of nausea. There is pain present that is described as throbbing. Therapies tried include Aleve. There is a family history of migraine headaches.(cousin only). Worried because she has some difficulty with word finding this time that lasted several days. It was similar to problems she had after her seizure but no witnessed seizure activity CURRENT PROBLEM LIST: 300.00 ANXIETY 692.9 ECZEMA 780.39 SEIZURE 785.1 PALPITATIONS 789.01 ABD PAIN RUQ V77.91 SCREENING FOR LIPID DISORDERS CURRENT MEDICATION LIST: ALESSE (28) ORAL TABLET 0.1-20 MG-MCG, 1 Every Day FLONASE NASAL SUSPENSION 50 MCG/ACT, 1 Every Day, As Needed CURRENT ALLERGY LIST: EGGS SULFITES ROS: GENERAL: Normal activity and energy level, no change in appetite. No major weight gain or loss. No malaise, chills, fever, diaphoresis. NEUROLOGIC: HAS HEADACHES. FAMILY HISTORY: FATHER: Illnesses: Cerebrovascular accident, hypertension, diabetes. PHYSICAL EXAMINATION: CONSTITUTIONAL: GENERAL APPEARANCE: Healthy appearing patient in no distress. NECK/THYROID: Trachea midline. No thyroid enlargement, tenderness, or mass. No supraclavicular or cervical adenopathy. RESPIRATORY: Clear to auscultation and percussion. Normal respiratory effort. CARDIOVASCULAR: CARDIAC: Regular rhythm. No murmurs, rubs, or gallops. ARTERIAL: No aortic bruits. EDEMA/VARICOSITIES OF EXTREMITIES: No edema or varicosities. GASTROINTESTINAL: ABDOMEN: Soft, non-tender, without masses. Bowel sounds active. LIVER/SPLEEN/KIDNEY: No hepatosplenomegaly, tenderness or nodularity. Kidneys not palpable. NEUROLOGIC: CRANIAL NERVES: field sales manager II-XII grossly intact. PSYCHIATRIC: Judgment appropriate. Oriented. Normal memory. Mood and affect appropriate. ASSESSMENT/PLAN: 346.00-MIGRAINE likely complex migraine- however with history of seizure will f/u w/ neuro. She wasworried recent change in OCP might have caused it- or more specifically caused symptoms that could be attributable to stroke however reassured her these headaches and other symptoms were not due to stroke. MEDICATIONS: IMITREX ORAL TABLET 50 MG, 1 po x 1. May repeat after 2 hour if headache recurs, 9 Dispensed, 6 Fills, status: NEW PRESCRIPTION, 12/30/2006. HEALTH MAINTENANCE: LAST BREAST EXAM DATE: 01/2006. LAST PAP DATE: 01/2006. LAST FLU VACCINE:never Electronically Signed by: Barby Cordon MD on December documented in this encounter Plan of Treatment Not on file documented as of this encounter Visit Diagnoses Not on filedocumented in this encounter Care Teams Envelope Patternmaker Relationship Specialty Start Date End Date Kesha Oswald MD PCP - General 10/18/09 documented as of this encounter
--- OUTSIDE RECORDS SUMMARY | 2025-07-01 10:49 | XMS_ITS | Encounter Summary ---
Author Organization [facility] Address [address] [place] [address] Care Team Providers Care Food Service Name Role Phone Kesha Oswald MD Primary Care Provider [phone] Encounter Details Date Type Department Care Team (Latest Contact Info) Description 07/26/2008 Outpatient Historical 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 Gender Identity Not on file Sexual Orientation Not on file documented as of this encounter Plan of Treatment Not on file documented as of this encounter Procedures Procedure Name Priority Date/Time Associated Diagnosis Comments US OB LTD 1 OR MORE FETUSES Timed Study 07/27/2008 11:58 AM CLAY CASTER documented in this encounter Results * US OB LTD 1 OR MORE FETUSES (07/27/2008 11:58 AM CLAY CASTER) Anatomical Region Laterality Modality Pelvis Other Narrative 07/27/2008 11:58 AM CLAY CASTER Results in [employer] Procedure Note 02/24/2009 Results in [employer] Franci Richard MD US ORDERABLES Final Result documented in this encounter Visit Diagnoses Diagnosis Recurrent loss, antepartum condition or complication documented in this encounter Care Teams Food Service Relationship Specialty Start Date End Date Kesha Oswald MD PCP - General 10/18/09 documented as of this encounter
--- OUTSIDE RECORDS SUMMARY | 2025-07-01 10:49 | XMS_ITS | Encounter Summary ---
Author Organization [facility] Address [address] [place] [address] Care Team Providers Care Director Biostatistics Name Role Phone Kesha Oswald MD Primary Care Provider [phone] Encounter Details Date Type Department Care Team (Latest Contact Info) Description 02/18/2006 Outpatient Historical [facility] Internal Medicine Medical [place] [facility] [address] [facility] [address] [address] Barby Cordon MD [facility] [address] [place] [address] Other Convulsions (CMS/HCC) (Primary Dx) Social History Tobacco Use Types Packs/Day Years Used Date Smoking Tobacco: Never Assessed Comments Unknown Sex and Gender Information Value Date Recorded Sex Assigned at Not on file 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 Gender Identity Not on file Sexual Orientation Not on file documented as of this encounter Plan of Treatment Not on file documented as of this encounter Procedures Procedure Name Priority Date/Time Associated Diagnosis Comments TSH REFLEXIVE Routine 02/18/2006 11:43 AM CDT CBC WITH DIFFERENTIAL Routine 02/18/2006 11:43 AM CDT CBC WITH DIFFERENTIAL Routine 02/18/2006 11:43 AM CDT documented in this encounter Results * (ABNORMAL) CBC WITH DIFFERENTIAL (02/18/2006 11:43 AM CDT) NEUTROPHILS 75(H) 45 - 70 % INTERFAC E SYSTEM LYMPHOCYTES 18 16 - 45 % INTERFAC E SYSTEM MONOCYTES 6 3 - 13 % INTERFACE SYSTEM EOSINOPHILS 1 0 - 7 % INTERFAC E SYSTEM BASOPHILS 0 0 - 2 % INTERFACE SYSTEM NEUTROPHIL ABSOLUTE 5.62 1.90 - 7.00 K/uL INTERFACE SYSTEM LYMPHOCYTE ABSOLUTE 1.32 0.70 - 4.50 K/uL INTERFACE SYSTEM MONOCYTE ABSOLUTE 0.41 0.10 - 1.30 K/uL INTERFACE SYSTEM EOSINOPHIL ABSOLUTE 0.09 0.00 - 0.70 K/uL INTERFACE SYSTEM BASOPHILS ABSOLUTE 0.02 0.00 - 0.20 K/uL INTERFACE SYSTEM 02/18/2006 11:4 3 AM CDT Barby Cordon MD HEMATOLOGY ORDERABLES Final Result Performing Organization Address [facility] de Phone Number INTERFACE SYSTEM Refer to clinic/hospital department * (ABNORMAL) CBC WITH DIFFERENTIAL (02/18/2006 11:43 AM CDT) Pathologist [facility] WBC 7.5 4.0 - 9.8 K/uL INTERFACE SYSTEM RBC 4.70 3.90 - 4.90 M/uL INTERFACE SYSTEM HEMOGLOBIN 15.2(H) 11.8 - 14.8 g/dL INTERFACE SYSTEM HEMATOCRIT 43.9 35.5 - 44.0 % INTERFACE SYSTEM MCV 93.4 82.0 - 99.0 fL INTERFACE SYSTEM MCH 32.3 27.2 - 32.6 pg INTERFACE SYSTEM MCHC 34.6 31.5 - 35.5 % INTERFACE SYSTEM RDW 13.3 11.5 - 14.5 % INTERFACE SYSTEM RDW-STDEV 45.7 37.1 - 48.7 fL INTERFACE SYSTEM PLATELETS 225 140 - 350 K/uL INTERFACE SYSTEM MPV 11.7 9.3 - 12.4 fL INTERFACE SYSTEM 02/18/2006 11:4 3 AM CDT Barby Cordon MD HEMATOLOGY ORDERABLES Final Result Performing Organization Address [facility] Co de Phone Number INTERFACE SYSTEM Refer to clinic/hospital department * TSH REFLEXIVE (02/18/2006 11:43 AM CDT) TSH 2.08 0.27 - 4.20 uU/mL INTERFACE SYSTEM 02/18/2006 11:4 3 AM CDT us Barby Cordon MD CHEMISTRY ORDERABLES Final R esult INTERFACE SYSTEM Refer to clinic/hospital department documented in this encounter Visit Diagnoses Diagnosis Other convulsions- Primary documented in this encounter Care Teams Director Biostatistics Relationship Specialty Start Date End Date Kesha Oswald MD PCP - General 10/18/09 documented as of this encounter
--- OUTSIDE RECORDS SUMMARY | 2025-07-01 10:49 | XMS_ITS | Encounter Summary ---
Author Organization [facility] Address 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
--- OUTSIDE RECORDS SUMMARY | 2025-07-01 10:49 | XMS_ITS | Clinical Summary ---
Author Organization [facility] ospital Address [address] [place] [address] Care Team Providers Care Medicinal Plant Picker Name Role Phone Miscellaneous, Not In File Unavailable Unava ilable Alcira Canas MD Primary Care Provider Allergies Active Allergy Reactions Criticality Noted Date Comments Sulfa (Sulfonamide Antibiotics) Anaphylaxis,Shortnes s of breath High 06/14/2011 Reaction: ANAPHYLAXIS, , Reaction: ANAPHYLAXIS Sulfites Hives High 05/01/2005 Medications butterbur root extract (PETADOLEX) 50 mg capsule 50 mg. 0 0 6 Active Additional Information Patient not taking.Reported on 06/24/2025 [id number] a-fish oil-D3 150-500-200 mg-mg-unit capsule,delayed release(DR/EC) Take by mouth A ctive Lactobac no.41-Bifidobac t no.7 70 mg (3 billion cell) capsule Take by mouth Active butalbital-aspi rin-caffeine (FIORINAL) 50-325-40 mg capsule Take 1 capsule by mouth every 4 hours as needed 8 Active cholecalciferol (VITAMIN D-3) 5,000 unit tablet Take 5,000 Int'l Units by mouth Active Ventolin HFA 90 mcg/actuation inhaler 0 Active cetirizine (ZyrTEC) 10 mg tablet Take 1 tablet (10 mg total) by mouth daily Active loratadine (CLARITIN) 10 mg tablet Take 1 tablet (10 mg total) by mouth daily Active liothyronine (CYTOMEL) 25 mcg tablet TAKE ONE TABLET BY MOUTH IN THE MORNING AND TAKE ONE TABLET BY MOUTH AT 3:00 P.M. 2 Active blood-glucose sensor (Dexcom G7 Sensor) device Use for continous blood glucose monitoring, replace every 10 days. 4 Active testosterone micronized, bulk, 100 % powder Testosterone, estrogen and progesterone cream all in one 3 4 Active triamcinolone (NASACORT) 55 mcg nasal inhaler Administer 2 sprays into each nostril daily 10.8 mL 3 5 Active estradioL (ESTRACE) 0.5 mg tablet Take 1 tablet (0.5 mg total) by mouth daily Active hydrocortisone 2.5 % cream Apply topically 2 (two) times a day On the upper lip rash for 1-2 weeks until improved. 30 g 5 Active CALCIUM ORAL Take by mouth daily Active Active Problems Problem Noted Date Diagnosed Date Vitamin D deficiency 06/20/2023 Overview (06/20/2023): She's been taking vitamin D 5,000 international units daily and she reports that she's had a normal level in spring 2022. No history of kidney stones. Assessment & Plan (06/20/2023 10:33 AM CDT): Stay on the vitamin D 5000 international units three times per week. Appendicitis 12/02/2021 Overview (12/02/2021): Added automatically from request for surgery [id number] Osteopenia of multiple sites 06/16/2020 Overview (06/24/2025): Ms. La is a healthy 49 year old female with a history of migraines, anorexia (age 13-17), and allergy-induced asthma and vitamin D deficiency and low body weight (115 pounds age 30) and is here for follow up on her bone health. She's currently on calcium 600 mg once per day and vitamin D 5000 international units daily . Her 25-OH vitamin D level was 73 ng/ml in 2024. For asthma she's been controlled with allergy control and has needed not medications. No history kidney stones nor thyroid disease. She does report gluten hypersensitivity and she does a gluten-free diet. She denies a family history of osteoporosis. She exercises regularly walking three miles three days per week. She continues a topical estrogen and progesterone and testosterone. She remains with normal periods. Assessment & Plan (06/24/2025 11:24 AM UNION CARPENTER): Ms. Johnson is here with a history of allergy-induced asthma and vitamin D deficiency for follow up on her bone health. Her bone density is worsened slightly in her spine and stable in her hip and she should stay on calcium and vitamin D 5000 international units three times per week and follow up next year. If she continues to decrease over time we'll consider a low dose oral bisphosphonate. She should continue a topical estrogen and progesterone and testosterone. Assessment & Plan (06/20/2023 10:24 AM CDT): Ms. Johnson is here with a history of allergy-induced asthma and vitamin D deficiency for follow up on her bone health. Her bone density is improved and she should stay on calcium and vitamin D 5000 international units three times per week and follow up in 2 years. Assessment & Plan (06/22/2021 11:31 AM CDT): Ms. Johnson is here with a history of allergy-induced asthma and vitamin D deficiency for follow up on her bone health. Her bone density is improved and she should stay on calcium and vitamin D 5000 international units three times per week and follow up in 2 years. Assessment & Plan (06/16/2020 11:54 AM CDT): Ms. Johnson is here with a history of allergy-induced asthma and vitamin D deficiency for evaluation of her bone health. Based on stature and her history of low body weight her bone density levels are not significantly low. Fortunately she's still premenopausal. Her bone density has had a decline from [id number] that we'll evaluate further with labs including a TSH/PTH/TTG-A antibody. Her basic chemistries have been checked recently and were normal. Her vitamin D level was too high at 91 ng/ml and she should decrease the vitamin D to 5000 international units three times per week. She should maintain calcium and vitamin D intake and exercise and remain on these conservative therapies for now and I'll follow her up next year. Epigastric abdominal pain 06/12/2019 RUQ abdominal pain 06/12/2019 Elevated cortisol level 02/11/2018 Osteopenia of thigh 01/27/2018 Family history of diabetes mellitus 08/23/2017 Mammographic calcification 10/03/2015 Overview (11/23/2016): Breast calcification, right Breast pain 04/04/2015 Overview (11/23/2016): Breast pain, right Mass of breast 04/04/2015 Overview (11/23/2016): Breast lump Tonsil stone 03/24/2015 Hay fever 11/22/2014 Egg allergy 01/11/2012 Supervision of other normal 06/14/2011 Abdominal pain in , antepartum 12/13/19 11 Personal history of nicotine dependence 10/19/19 10 Migraine with aura 12/30/2006 Palpitations 04/15/2006 Other convulsions 02/18/2006 Contact dermatitis and other eczema, due to unspecified cause 10/17/2005 Anxiety state 05/01/2005 Encounters Date Type Department Care Team Description 06/24/2025 10:40 AM UNION CARPENTER Office Visit [address] [place] [address] Barby East MD Osteopenia of multiple sites (Primary Dx) 06/24/2025 10:10 AM UNION CARPENTER Clinical Support [address] [place] [address] Osteopenia of multiple sites (Primary Dx) 06/24/[address] [place] [address] Barby East MD 06/16/2025 Results Follow-Up [facility] [address] [place] [address] [address] [place] [phone] Kristen Denson RN Pap and High Risk HPV and Genotyping (Cytology Component) 06/09/2025 2:56 PM CDT - 06/09/2025 11:59 PM CDT Hospital Encounter [facility] [address] [place] [phone] Cervical cancer screening; Screening for malignant neoplasm of cervix Discharge Disposition: Discharge to home or self care 06/09/2025 11:45 AM CDT Office Visit [facility] [address] [facility] [address] [place] [phone] Michele Moore MD Screening for blood or protein in urine (Primary Dx); Screening for malignant neoplasm of cervix; Cervical cancer screening; Urge incontinence of urine; Menopausal symptoms; Well woman exam 04/14/2025 11:15 AM CDT Office Visit [facility] [address] [place] [address] Jennifer Simon PA Inflamed seborrheic keratosis (Primary Dx); Seborrheic keratosis; Multiple benign nevi; Lentigo; Irritant contact dermatitis due to cosmetics from Last 3 Months Immunizations Immunization Administration Dates Next Due Pfizer SARS-CoV-2 Monovalent Vaccination (12+ Yrs) PURPLE 03/14/2021 Tdap 02/17/2024,01/06/2007 Surgical History Surgery Date Site/Laterality Comments SECTION section SECTION 2009 APPENDECTOMY 08/19/2022 - 08/18/2023 Medical History Medical History Date Comments Asthma Asthma GERD (gastroesophageal reflux disease) Depression 2018 Anxiety 1999 Migraines 2002 Family History Medical History Relation Name Comments Developmental delay Daughter Archana Autism E pilepsy Arthritis Father Lc Bladder Cancer Father Lc Cancer, bladd er; Diabetes Father Lc Pulmonary embolism Father Lc Skin cancer Father Lc Cervical cancer Maternal Grandmother Roxie Magallon er, cervical; Arthritis Mother Ema Cervical cancer Mother Ema Diabetes Mother Ema Mental illness Mother Ema Obesity Mother Ema Breast cancer Mother's Sister 1 Cancer, b reast; Cervical cancer Mother's Sister 1 Breast cancer Mother's Sister 2 Other Other Family history of Descent: [place]; Lung cancer Paternal Grandmother Raissa Cancer, lung; Epilepsy Sister Nena Mental illness Sister Nena Relation Name Status Comments Daughter Archana Alive Father Lc Maternal Grandmother Roxie Mother Ema Alive Mother's Sister 1 Mother's Sister 2 Alive Other Paternal Grandmother Raissa Sister Nena Alive Social History Tobacco Use Types Packs/Day Years Used Date Smoking Tobacco: Former Cigarettes 0.8 15 1 8 - 2002 Smokeless Tobacco: Never Tobacco Cessation:Counseling Given: Not Answered Alcohol Use Standard Drinks/Week Comments Yes 0 (1 standard drink = 0.6 oz pur e alcohol) Humiliation, Afraid, Rape, and Kick questionnair e Answer Date Recorded Within the last year, have y ou been afraid of your partner or ex-partner? No 03/30/2021 Within the last year, have y ou been humiliated or emotionally abused in other ways by your partner or ex-partner? No Within the last year, have y ou been kicked, hit, slapped, or otherwise physically hurt by your partner or ex-partner? No 03/30/2021 Within the last year, have y ou been raped or forced to have any kind of sexual activity by your partner or ex-partner? No 03/30/2021 AUDIT-C Answer Date Recorded Q1: How often do you have a drink containing alc ohol? Monthly or less 02/04/2025 Q2: How many drinks containi ng alcohol do you have on a typical day when you are drinking? 1 or 2 02/04/2025 Q3: How often do you have si x or more drinks on one occasion? Never 02/04/2025 PHQ-2 Answer Date Recorded PHQ-2 Total Score (If total score is 3 or more points, staff should administer the PHQ-9) 0 02/04/2025 Comments No Sex and Gender Information Value Date Recorded Sex Assigned at Not on file Legal Sex Female 3:52 PM UNION CARPENTER Gender Identity Not on file Sexual Orientation Straight 03/29/2021 5: 54 PM CDT Obstetrics History Para Term AB IAB SAB Ectopic Multiple Livin g Live Births 3 2 2 1 1 0 2 2 Date Outcome GA Total Labor Labor/2nd/3rd Weight Sex Type Anes PTL Elise A1 A5 Name Clin Term 1999 SAB 5w0 d Comments:D&C 2008 Term 39w 3d M CS-LT ranv N Living Last Filed Vital Signs Vital Sign Reading Time Taken Comments Blood Pressure 98/64 06/09/2025 12:07 PM CDT Pulse 72 02/04/2025 10:59 AM CDT Temperature 36.7 C (98 F) 02/04/2025 10:59 AM CDT Respiratory Rate 16 12/02/2021 2:45 PM CDT Oxygen Saturation 97% 02/04/2025 10:59 AM CDT Inhaled Oxygen Concentration - - Weight 73 kg (160 lb 14.4 oz) 06/24/2025 10:42 A M UNION CARPENTER Height 151.1 cm (4' 11.5) 06/24/2025 10:[address] Body Mass Index 31.95 06/24/2025 10:42 AM UNION CARPENTER Plan of Treatment Health Maintenance Due Date Last Done Comments Pneumococcal vaccine <65 (1 of 2 - PCV) 1993 Zoster Vaccine (1 of 2) 1993 Covid-19 Vaccine (2 - Pfizer risk series) 04/04/2021 03/14/2021 Breast Cancer Screening-Mammogram 11/15/2023 11/14/2022, 08/29/2017, 04/11/2016, Additional history exists Influenza Vaccine (#1) 2025 Depression Screening 02/04/2026 02/04/2025 Cervical Cancer Screening 06/09/20262024, 06/09/2025, 05/20/2024, Additional history exists Regular Well Visit/Exam 18-64 06/09/2026, 05/20/2024, 04/24/2023, Additional history exists Colon Cancer Screening-DNA Stool 11/17/2026 11/18/19 24 DTaP/Tdap/Td Vaccine (3 - Td or Tdap) 02/16/2034 02/17/2024, 01/06/2007 Hepatitis B Screening Completed 03/01/2025 Hepatitis C Screening Completed 03/01/2025 Procedures Procedure Name Priority Date/Time Associated Diagnosis Comments THINPREP PROCESSING (MOLECULAR COMPONENT) Routine 06/09/2025 3:11 PM CDT Cervical cancer screening HIGH RISK HPV DNA DETECTION WITH GENOTYPING Routine 06/09/2025 3:11 PM CDT Cervical cancer screening PAP AND HIGH RISK HPV, REFLEX TO GENOTYPING Routine 06/09/2025 12:43 PM CDT Screening for malignant neoplasm of cervix POCT URINALYSIS DIPSTICK Routine 06/09/2025 12:00 PM CDT Screening for blood or protein in urine HEPATITIS C ANTIBODY Routine 03/01/2025 8:30 AM CDT Screening for viral disease SCREENING MAMMOGRAM BILATERAL W WILLIS Schedule Routine, Read Routine (OP Routine) 11/14/2022 4:12 PM CDT Screening mammogram, encounter for from Last 3 Months or Most Recently Relevant to Health Maintenance Results * ThinPrep processing (Molecular component) (06/09/2025 3:11 PM CDT) ThinPrep processing (Molecular component) Specimen received for processing. Endocervical 06/09/2025 3:11 PM CDT 06/09/2025 3:11 PM CDT us Michele Moore MD LAB BODY FLUIDS AND STOOLS ORDERABLES Final Result [facility] [address] [place] [address] * High Risk HPV DNA Detection with Genotyping (Molecular component) (06/09/2025 3:11 PM CDT) HPV HR 16 Not Detected Not Detected HPV HR 18 Not Detected Not Detected [facility] HPV HR Non 16/18 Not Detected Not Detected [facility] Comment: Interpretive Data Nucleic acid amplification for detection of high-risk Human Papilloma virus (HPV) is performed by the Juliana Phillip 4800 HPV test, which specifically detects high-risk HPV-16, 18, 31, 33, 35, 39, 45, 51, 52, 56, 58, 59, 66, and 68 genotypes. This assay has been approved by the [place] Food and Drug Administration for detection of HPV in cervical specimens collected by a physician using an endocervical brush/spatula or cervical broom and placed in the ThinPrep Pap Test PreservCyt collection containers. The performance characteristics of this test have been verified by the [facility]. Correlate with separately reported cytology results, as applicable. Endocervical 06/09/2025 3:11 PM CDT 06/09/2025 3:11 PM CDT Narrative [facility] - 06/10/2025 3:47 PM CDT Clinical history and diagnosis->screening Number of vials->1 Testing type->Screening Last menstrual period (date if known)->unknown us Michele Moore MD LAB BODY FLUIDS AND STOOLS ORDERABLES Final Result [facility] [address] Department of Laboratories [place], [place] [id number] * Pap and High Risk HPV and Genotyping (Cytology Component) (06/09/2025 12:43 PM CDT) Thin prep (Pap test) 06/09/2025 12:43 PM CDT 06/10/2025 10:40 AM CDT Narrative [facility] - 06/14/2025 3:22 PM CDT EPIC results best viewed via link to PDF [address] [place], [place] [address] Tele: Sophie Mohamud MD - Segmental Paver Installer CYTOLOGY REPORT Note to Patients: This report may contain a detailed description of human tissue sent by a health care provider to the laboratory for pathologic evaluation. The content of this report is essential for diagnosis and may provide important critical findings. This information may be unfamiliar to patients to review without a medical professional present. It is advised that the patient review this report in the presence of a health care provider who can answer questions and explain the details. Patient Name: TARYN LA [address]: [address] [place] [address] Gender: F : 1975 (Age: 49) Service: Location: [place] [address] #: [id number] Patient Type: [facility] [place] SPECIMEN Taken: 06/09/2025 Reported: 06/14/2025 Physician(s): Dr. Michele Moore M.D. FINAL DIAGNOSIS: SOURCE OF SPECIMEN - ThinPrep Pap and HPV w/ reflex Genotyping: STATEMENT OF ADEQUACY Source: Cervical/Endocervical - Satisfactory for interpretation - Endocervical/Transformation zone component absent or insufficient - Satisfactory for interpretation - Abundant Cytolysis - Case screened using computer assisted imaging technology GENERAL CATEGORIZATION: - Negative for intraepithelial lesion or malignancy lewo/06/14/2025 15:22Gregg Georges (ASCP) Report Reviewed and Electronically Signed By Gregg Georges (ASCP)Clerical Data Follow A; [id number] DIAGNOSIS COMMENT: Ancillary Testing: HPV Genotype 16 - Not Detected Reference Range: Not Detected HPV Genotype 18 - Not Detected Reference Range: Not Detected HPV High Risk Group (31, 33, 35, 39, 45, 51, 52, 56, 58, 59, 66 and 68) - Not Detected Reference Range: Not Detected This test was performed using the PHILLIP 5800 CLINICAL DIAGNOSIS AND HISTORY Last Menstrual Period: UNKNOWN REPORT IMAGES AND/OR SCANNED DOCUMENTS ONLY VIEWABLE IN PDF FORMAT The Pap test is a screening test used to aid in the detection of cervical cancer and its precursors. It should not be the sole means by which malignant and premalignant lesions are diagnosed. Both false negative and false positive results may occur. It also has poor sensitivity for the detection of endometrial lesions and should not be used to evaluate suspected endometrial abnormalities. For these reasons it is most important to obtain Pap tests at regular intervals, as recommended by your physician or nurse practitioner. Frozen section, operating room consultation, gross examination and dissection, and case sign out may have been performed in part or completely in the following laboratories: [facility], [facility], [address], [address] [place] [address]. Michele Moore MD LAB CYTOLOGY ORDERABLES Fin al Result PATHOLOGY [facility] Laboratory Receiving [address] [place] [address] * POCT urinalysis dipstick (06/09/2025 12:00 PM CDT) Color, Urine, POC Yellow Clarity, ur, POC Clear Clear Glucose, ur, POC Negative Negative Bilirubin, ur, POC Negative Negative Ketones, ur, POC Negative Negative Specific [place], POC 1.015 1.003 - 1.030 Blood, ur, POC Negative Negative pH, ur, POC 7.0 5.0 - 8.0 Protein, ur, POC Negative Negative Urobilinogen, urine, POC 0.2 0.2 - 1.0 mg/dL Nitrite, ur, POC Negative Negative Leukocytes, ur, POC Negative Negative Lot Number [id number] Urine 06/09/2025 12:0 0 PM CDT Michele Moore MD POINT OF CARE TEST ORDERABL ES Final Result * Hepatitis C antibody Blood (03/01/2025 8:30 AM CDT) Hep C Ab Non Reactive Non Reactive [facility] - 01 Comment: HCV antibody alone does not differentiate between previously resolved infection and active infection. Equivocal and Reactive HCV antibody results should be followed up with an HCV RNA test to support the diagnosis of active HCV infection. Blood 03/01/2025 8:30 AM CDT 03/01/2025 Narrative [facility] - 03/02/2025 7:09 AM CDT Performed at: [address] [place] [id number] Grades 7 8 Tutor: Darren Freeman PhD, Phone: [phone] Alcira Canas MD LAB MICROBIOLOGY - GEN ERAL ORDERABLES Final Result [facility] - 01 * Screening Mammogram Bilateral W Willis (11/14/2022 4:12 PM CDT) Anatomical Region Laterality Modality Breast Bilateral Mammography 11/15/2022 8:19 AM CDT Impressions 11/15/2022 8:19 AM CDT No evidence of malignancy in either breast. FINAL ASSESSMENT: BI-RADS Category 1: Negative. RECOMMENDATION: Recommend return for annual screening mammogram in 12 months. Electronically signed by: Jes Mckinney M.D. Narrative 11/15/2022 8:19 AM CDT EXAMINATION: BILATERAL SCREENING MAMMOGRAM COMPARISON: Multiple prior studies, most recently 08/29/2017 and dating back to 04/04/2015. [facility] TECHNIQUE: Full-field 2D and digital breast tomosynthesis (DBT) images were obtained. CAD was utilized. BREAST PARENCHYMAL COMPOSITION: There are scattered areas of fibroglandular density. FINDINGS: There is no suspicious mass, calcification, or distortion in either breast. There has been no significant interval change from the prior study. us Self Screening Mammogram IMG MAMMO PROCEDURES Fi nal Result from Last 3 Months or Most Recently Relevant to Health Maintenance Insurance [facility] CHO[facility] PLUS [facility] CHO[facility] PLUS [facility] PLUS Advance Directives For more information, please contact: [phone] * Full Code (Latest Code Status on File) Date Activated Date Inactivated Comments 12/02/2021 2:51 PM 12/03/2021 2:05 AM Care Teams Medicinal Plant Picker Relationship Specialty Start Date End Date Alcira Canas MD [address] [address] PCP - General Internal Medicine 02/04/25 Miscellaneous, Not In File 12/02/21
--- OUTSIDE RECORDS SUMMARY | 2025-07-01 10:49 | XMS_ITS | Encounter Summary ---
Author Organization [employer] Address [address] [place] [address] Care Team Providers Care Genetic Counselor Name Role Phone Kesha Oswald MD Primary Care Provider [phone] Encounter Details Date Type Department Care Team (Latest Contact Info) Description 02/26/2006 Outpatient Historical [facility] Ang Self MD [address] [facility] [address] [address] Other Convulsions (CMS/HCC) (Primary Dx) Social History Tobacco Use Types Packs/Day Years Used Date Smoking Tobacco: Never Assessed Comments Unknown Sex and Gender Information Value Date Recorded Sex Assigned at Not on file Legal Sex Female 5:38 AM DETECTIVE Gender Identity Not on file Sexual Orientation Not on file documented as of this encounter Plan of Treatment Not on file documented as of this encounter Visit Diagnoses Diagnosis Other convulsions- Primary documented in this encounter Care Teams Genetic Counselor Relationship Specialty Start Date End Date Kesha Oswald MD PCP - General 10/18/09 documented as of this encounter
--- OUTSIDE RECORDS SUMMARY | 2025-07-01 10:49 | XMS_ITS | Encounter Summary ---
Author Organization [facility] Address 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 Gender Identity Not on file Sexual Orientation Not on file documented as of this encounter Last Filed Vital Signs Vital Sign Reading Time Taken Comments Blood Pressure 90/60 05/01/2005 1:00 PM CDT Pulse 64 05/01/2005 1:00 PM CDT Temperature - - Respiratory Rate 18 05/01/2005 1:00 PM CDT Oxygen Saturation - - Inhaled Oxygen Concentration - - Weight 56.2 kg (124 lb) 05/01/2005 1:00 PM CDT Height 152.4 cm (5') 05/01/2005 1:00 PM CDT Body Mass Index 24.22 05/01/2005 1:00 PM CDT documented in this encounter Plan of Treatment Not on file documented as of this encounter Visit Diagnoses Not on filedocumented in this encounter Care Teams Coroner Relationship Specialty Start Date End Date Kesha Oswald MD PCP - General 10/18/09 documented as of this encounter
--- OUTSIDE RECORDS SUMMARY | 2025-07-01 10:49 | XMS_ITS | Encounter Summary ---
Author Organization [facility] Address 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
--- OUTSIDE RECORDS SUMMARY | 2025-07-01 10:49 | XMS_ITS | Encounter Summary ---
Author Organization [facility] Address [address] [place] [address] Care Team Providers Care Bottling Supervisor Name Role Phone Kesha Oswald MD Primary Care Provider [phone] Encounter Details Date Type Department Care Team (Late st Contact Info) Description 12/30/2006 Outpatient Historical [facility] Internal Medicine Medical [place] [facility] [address] [facility] [address] [address] Barby Crodon MD [facility] [address] [place] [address] Social History Tobacco Use Types Packs/Day Years Used Date Smoking Tobacco: Never Assessed Comments Unknown Sex and Gender Information Value Date Recorded Sex Assigned at Not on file 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 Gender Identity Not on file Sexual Orientation Not on file documented as of this encounter Last Filed Vital Signs Vital Sign Reading Time Taken Comments Blood Pressure 106/72 12/30/2006 10:00 AM CDT Pulse 88 12/30/2006 10:00 AM CDT Temperature 36.8 C (98.3 F) 12/30/2006 10:00 AM CDT Respiratory Rate - - Oxygen Saturation - - Inhaled Oxygen Concentration - - Weight 55.8 kg (123 lb) 12/30/2006 10:00 AM CDT Height - - Body Mass Index 24.02 02/18/2006 11:00 AM CDT documented in this encounter Plan of Treatment Not on file documented as of this encounter Visit Diagnoses Not on filedocumented in this encounter Care Teams Bottling Supervisor Relationship Specialty Start Date End Date Kesha Oswald MD PCP - General 10/18/09 documented as of this encounter
--- OUTSIDE RECORDS SUMMARY | 2025-07-01 10:49 | XMS_ITS | Encounter Summary ---
Author Organization [facility] Address [address] [place] [address] Care Team Providers Care Tobacco Sprayer Name Role Phone Kesha Oswald MD Primary Care Provider [phone] Encounter Details Date Type Department Care Team (Late st Contact Info) Description 04/15/2006 Outpatient Historical [facility] Internal Medicine Medical [facility] [address] [facility] [address] [phone] Barby Cordon MD [facility] [address] [place] [address] Social History Tobacco Use Types Packs/Day Years Used Date Smoking Tobacco: Never Assessed Comments Unknown Sex and Gender Information Value Date Recorded Sex Assigned at Not on file 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
--- OUTSIDE RECORDS SUMMARY | 2025-07-01 10:49 | XMS_ITS | Encounter Summary ---
Author Organization [facility] Address 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
--- OUTSIDE RECORDS SUMMARY | 2025-07-01 10:49 | XMS_ITS | Encounter Summary ---
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 Gender Identity Not on file Sexual Orientation Straight 03/29/2021 5: 54 PM CDT documented as of this encounter Plan of Treatment Not on file documented as of this encounter Procedures Procedure Name Priority Date/Time Associated Diagnosis Comments SCAN - RADIOLOGY/IMAGING 04/19/2020 documented in this encounter Results * SCAN - RADIOLOGY/IMAGING (04/19/2020) Anatomical Region Laterality Modality Other us Provider Scanning Final Result documented in this encounter Visit Diagnoses Not on filedocumented in this encounter Care Teams Light Industrial Relationship Specialty Start Date End Date Kesha Oswald MD PCP - General 08/29/17 05/11/24 Moose Patel DO [address] [facility] [address] [place] [address] PCP - General Internal Medicine 05/12/24 02/03/25 Alcira Canas MD [address] [facility] [address], [place] [address] PCP - General Internal Medicine 02/04/25 Miscellaneous, Not In File 12/02/21 documented as of this encounter
--- OUTSIDE RECORDS SUMMARY | 2025-07-01 10:49 | XMS_ITS | Encounter Summary ---
Author Organization [facility] Address 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 Gender Identity Not on file Sexual Orientation Not on file documented as of this encounter Plan of Treatment Not on file documented as of this encounter Procedures Procedure Name Priority Date/Time Associated Diagnosis Comments ABORH TYPING Routine 05/18/2008 6:11 PM CDT documented in this encounter Results * ABORH TYPING (05/18/2008 6:11 PM CDT) HISTORY CHECK No Historical ABO/Rh [facility] ABO/RH TYPE O Positive [facility] SPECIMEN LIFE 3 days from drawdate [facility] Blood specimen (specimen) 05/18/2008 6:11 PM CDT us [facility] BLOOD BANK ORDERABLES Edite d INTERFACE SYSTEM Refer to clinic/hospital department [facility] CLIA# [id number] [address] [place] [address] documented in this encounter Visit Diagnoses Not on filedocumented in this encounter Care Teams Communication Clerk Relationship Specialty Start Date End Date Kesha Oswald MD PCP - General 10/18/09 documented as of this encounter
--- OUTSIDE RECORDS SUMMARY | 2025-07-01 10:49 | XMS_ITS | Encounter Summary ---
Author Organization [facility] Address [address] [place] [address] Care Team Providers Care Benefits Counselor Name Role Phone Kesha Oswald MD Primary Care Provider [phone] Encounter Details Date Type Department Care Team (Late st Contact Info) Description 02/25/2006 Outpatient Historical Division of Neurology [address] [facility] [place] [address] Ang Self MD [address] [facility] [address] [place] [address] Social History Tobacco Use Types Packs/Day Years Used Date Smoking Tobacco: Never Assessed Comments Unknown Sex and Gender Information Value Date Recorded Sex Assigned at Not on file 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
--- OUTSIDE RECORDS SUMMARY | 2025-07-01 10:49 | XMS_ITS | Encounter Summary ---
Author Organization [facility] Healthcare Address [address] [place] [address] Care Team Providers Care Oyster Shipper Name Role Phone Miscellaneous, Not In File Unavailable Unava Alcira Salgado MD Primary Care Provider Encounter Details Date Type Department Care Team (Latest Contact Info) Description 06/16/2025 Results Follow-Up [facility] Medical Group [facility] [address] [place] [phone] Kristen Denson RN Pap and High Risk HPV and Genotyping (Cytology Component) Social History Tobacco Use Types Packs/Day Years Used Date Smoking Tobacco: Former Cigarettes 0.8 15 2002 Smokeless Tobacco: Never Alcohol Use Standard [...] on file 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
--- OUTSIDE RECORDS SUMMARY | 2025-07-01 10:49 | XMS_ITS | Encounter Summary ---
Author Organization [facility] Address [address] [place] [address] Care Team Providers Care Construction Accountant Name Role Phone Kesha Oswald MD Primary Care Provider [phone] Encounter Details Date Type Department Care Team (Latest Contact Info) Description 06/02/2008 Outpatient Historical [facility] Franci Richard MD NO ADDRESS ON FILE Supervision of Other Normal ; Habitual Aborter, Antepartum Condition or Complication Social History Tobacco Use Types Packs/Day Years Used Date Smoking Tobacco: Never Assessed Comments Unknown Sex and Gender Information Value Date Recorded Sex Assigned at Not on file 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 Gender Identity Not on file Sexual Orientation Not on file documented as of this encounter Plan of Treatment Not on file documented as of this encounter Procedures Procedure Name Priority Date/Time Associated Diagnosis Comments US OB LTD 1 OR MORE FETUSES Timed Study 06/02/2008 10:39 AM CDT documented in this encounter Results * US OB LTD 1 OR MORE FETUSES (06/02/2008 10:39 AM CDT) Anatomical Region Laterality Modality Pelvis Other Narrative 06/02/2008 10:39 AM CDT Results in [facility] Procedure Note 02/24/2009 Results in [facility] Franci Richard MD ORDERABLES Final Result documented in this encounter Visit Diagnoses Diagnosis Supervision of other normal Recurrent loss, antepartum condition or complication documented in this encounter Care Teams Construction Accountant Relationship Specialty Start Date End Date Kesha Oswald MD PCP - General 10/18/09 documented as of this encounter
--- OUTSIDE RECORDS SUMMARY | 2025-07-01 10:49 | XMS_ITS | Encounter Summary ---
Author Organization [facility] Address [address] [place] [address] Care Team Providers Care Rope Maker Name Role Phone Kesha Oswald MD Primary Care Provider [phone] Reason for Visit * Reason Onset Date Comments Cancel Request 03/08/2025 Encounter Details Date Type Department Care Team (Late st Contact Info) Description 03/08/2025 Telephone [facility] Pulmonary Function Medical [place] [facility] [address] [facility] [address] [place] [address] Luis Antonio Hough, [facility] [address] 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 She has not returned our calls. No further attempts will be made at this time. Unless, we hear further instructions from you. Thank you documented in this encounter Plan of Treatment Not on file documented as of this encounter Visit Diagnoses Not on filedocumented in this encounter Care Teams Rope Maker Relationship Specialty Start Date End Date Kesha Oswald MD PCP - General 10/18/09 documented as of this encounter
== END 2025-07-01 09:57 | disposition home or self-care (01) ==
LOC: ANHED 10:02
PROVIDERS: Emergency Provider Emergency Medicine
DX: S81.012A Laceration without foreign body, left knee, initial encounter (principal); W01.0XXA Fall on same level from slipping, tripping and stumbling without subsequent striking against object, initial encounter; Y93.K1 Activity, walking an animal
CPT/HCPCS: 12002; 99282